=== PATIENT | male | born 1945 | race Caucasian/White ===

== ENCOUNTER 2017-01-01 12:11 | Emergency (ER) | payer MEDICARE, BC ==
[~2017-01-01 12:11] MED LIST: ECOTRIN81 MG PO; ELIQUIS5 MG PO; LASIX DPS40 MG PO; METOPROLOL TART25 MG PO; NYSTATIN1 EAC1 TP; POTASSIUM CHLO20 ME2 PO; ZESTRIL DPS2.5 MG PO
[2017-07-11] MEDS ORDERED: ELIQUIS5 MG PO (11:20)
[2017-07-11] MEDS ORDERED: ASPIR-LOW81 MG PO (11:20)
[2017-07-11] MEDS ORDERED: CARVEDILOL3.125 MG PO (11:20)
[2017-07-11] MEDS ORDERED: MYCOSTATIN PWD15 GM TP (11:21)
[2017-07-11] MEDS ORDERED: KLOR-CON M2020 ME1 PO (11:21)
[2017-07-11] MEDS ORDERED: LASIX DPS80 MG PO (11:21)
[2017-07-11] MEDS ORDERED: ZESTRIL DPS20 MG PO (11:21)
[2017-07-11] MEDS ORDERED: LIPITOR40 MG PO (11:21)
== END 2017-01-01 13:29 | disposition left against medical advice (07) ==
LOC: ER 12:11
DX: Z53.21 Procedure and treatment not carried out due to patient leaving prior to being seen by health care provider (principal)

== ENCOUNTER 2017-07-07 13:10 | Inpatient (IN) | payer MEDICARE, BC ==
[~2017-07-07] VITALS: Ht 180.3 cm; Wt 149.2 kg
--- NOTE | ~2017-07-07 | ECH ---
Transthoracic Echocardiography Report (TTE) Demographics Patient Name PEDRO MARTÍNEZ Date of Study 07/09/2017 Patient Number [id number] Visit Number [id number] Date of 1945 Room Number 413 Accession Number [id number] Gender Male Age 71 year(s) Referring Hermelinda Eason Urology Physician Assistant Christine Gilbert [facility] Physician Physician Interpreting Velma [employer] Team Lead Physician MD Supervising Ordering Physician Hermelinda Eason MD, MD/P Nurse Stress Heel Cover Splitter Conclusions Summary Limited exam for ejection fraction. The estimated left ventricular ejection fraction is 25-30% in underlying atrial fibrillation. Segmental wall motion abnormalities noted. The left ventricle is moderately dilated . Mild concentric left ventricular hypertrophy. Mildly dilated right ventricle with normal systolic function. The left atrium is mildly dilated by LA volume index measurement. The right atrium is severely dilated. The ascending aorta appears moderately dilated. The maximum diameter measures 4.5 cm. Procedure Type of Study TTE procedure:Echo Limited SF. Procedure Date Date: 07/09/2017 Start: 11:26 AM Technical Quality: Fair due to body habitus. Indications:Shortness of breath, Abnormal troponin and non-ischemic cardiomyopathy. Additional Indications:limited for EF Appropriate Use Criteria: 9 Height: 71 inches Weight: 337 pounds BSA: 2.63 m Rhythm: Irregular HR: 81 bpm BP: 145/90 mmHg Allergies - No known allergies. M-Mode/2D Measurements LV Diastolic Dimension: 6.85 cm LV Systolic Dimension: 6.64 cm LV Septum Diastolic: 1.02 cm LV PW Diastolic: 1.06 cm AO Root Dimension: 3.41 cm LA Dimension: 5.72 cm RV Diastolic Dimension: 4.68 cm LA volume: 94.32 ml LA volume index: 36 ml/m LVOT: 2.77 cm RV Base: 4.9 cm RV Mid: 4.4 cm RV Length: 8.8 cm TAPSE: 2.5 cm Doppler Measurements RA Area: 35.64 cm Findings Left Ventricle The left ventricle is moderately dilated . Mild concentric left ventricular hypertrophy. Right Ventricle Mildly dilated right ventricle with normal systolic function. Left Atrium The left atrium is mildly dilated by LA volume index measurement. Right Atrium The right atrium is severely dilated. Pericardial Effusion No evidence of pericardial effusion. Miscellaneous The ascending aorta appears moderately dilated. The maximum diameter measures 4.5 cm. Pleural Effusion No evidence of pleural effusion. Contractility Score LV regional wall motion:(0-Non visualized 1-Normal 2-Hypokinesis 3-Akinesis 4-Dyskinesis 5-Aneurysm) Signature
--- NOTE | 2017-07-08 07:15 | ER ---
ADMIT: 07/07/2017 RM/LOC: 413 [facility] MR#: [id number] [address] [address] PEDRO MARTÍNEZ [address] [place] [address] Emergency Room Report SEX: M AGE: 71 : 1945 DATE: 07/07/2017 SUBJECTIVE: The patient is a 71-year-old male with a past medical history of CHF, atrial fibrillation, and aortic aneurysm, who came to the ER with chief complaint of shortness of breath for the last 2 to 3 days. Allegedly, the patient has exertional shortness of breath even after walking short distance. The patient states for months, he is not taking any of his medications for atrial fibrillation or CHF. The patient denies any chest pain. The patient denies any fever or colorful sputum. The patient denies any orthopnea. PHYSICAL EXAMINATION: GENERAL: The patient was afebrile, was tachypneic with a respiratory rate of 28, and O2 saturation was 95% on room air, and blood pressure was 140s over 100. GENERAL: The patient was in moderate respiratory distress and was anxious. The patient was using accessory muscles too. HEAD AND NECK: There is no cyanosis. Trachea is midline. There is no bruit on the neck. CHEST: Decreased breath sound bilaterally and prolonged expiration. Decreased air movement bilaterally too. I did not hear any wheezing or crackles. HEART: Normal S1, S2 without any murmurs or gallops. ABDOMEN: Distended but nontender. EXTREMITIES: There is no tenderness. There is chronic edema which is nonpitting on lower extremities. Rest of physical exam is noncontributory and negative. Considering the patient's respiratory distress and work of breathing, the patient was put on BiPAP. EKG showed atrial fibrillation with left bundle- branch block, and the patient received aspirin p.o. in the ER too. Troponin was mildly elevated at 0.07. D-dimer was also elevated to 1.22, which a followup CT was negative for PE. Chest x-ray showed cardiomegaly with interstitial mild edema bilaterally. BNP was elevated to 14,000. The patient received a dose of Lasix 40 mg IV and was reassessed. After BiPAP and Lasix, the patient states his respiratory distress resolved significantly. The patient was off BiPAP and respiratory rate was in high teens. Medicine was consulted. The patient was admitted for CHF exacerbation, medication noncompliance, and elevated troponin for further followups and treatments. Chano Ortega MD/ juan alberto JOB #: [id number] CC: Nasima Berrios MD, Attending Physician Nasima Berrios MD, Family Physician
--- NOTE | 2017-07-08 16:55 | HP ---
ADMIT: 07/07/2017 RM/LOC: 413 [facility] MR#: [id number] [address] PEDRO MARTÍNEZ [address] [place] [address] History and Physical SEX: M AGE: 71 : 1945 DATE OF SERVICE: CHIEF COMPLAINT: Shortness of breath. HISTORY OF PRESENT ILLNESS: This is a 71-year-old white gentleman, past history of heart failure, sleep apnea. He presented with shortness of breath. He was found to be hypoxic. He says he has not been taking his meds for about a month because of a "disagreement with pharmacist." This last , he was starting to get a little more short of breath according to his son. He tells me, it was just yesterday. Today, he walked across the room to wind the grandfather clock and was so short of breath, he became dizzy. He then decided to come into emergency room. There, he was found to be hypoxic. He was given some IV Lasix, found to have an elevated blood pressure as well. Needed 4 L of oxygen to keep his oxygen saturations above 90%. PAST HISTORY: Includes obstructive sleep apnea, hypertension. He has had multiple abdominal surgeries for abdominal hernias. He has atrial fibrillation, chronic kidney disease, left bundle-branch block, history of thoracic aortic aneurysm, coronary artery disease, history of depression, diverticulosis, history of hyperglycemia, hypertension, history of a primary cardiomyopathy. Surgeries include status post colon resection, cholecystectomy. SOCIAL HISTORY: He is a former smoker. He is . PHYSICAL EXAMINATION: VITAL SIGNS: Temperature 97.5, pulse 101, respirations 22, blood pressure 132/101, oxygen saturation 97% on 4 L of oxygen by nasal cannula. GENERAL: This is a morbidly obese 71-year-old, in no apparent distress. HEENT: Pupils are equal, round, and reactive to light and accommodation. His extraocular muscles are intact. His throat is clear. NECK: Supple. Trachea is midline. Thyroid not palpable. He has some teeth missing. HEART: Irregularly irregular and distant. LUNGS: Clear to auscultation bilaterally but decreased breath sounds in lower lobes bilaterally. ABDOMEN: Protuberant and obese. He has a large right-sided abdominal hernia. SKIN: He has a stage II below the umbilicus. He has the smell of yeast and some redness under his pannus and his groin. MUSCULOSKELETAL: He has some diffuse weakness, but range of motion is okay in upper and lower extremities, 2 to 3+ pitting edema. NEUROLOGIC: Cranial nerves are intact. LABORATORY AND X-RAY DATA: Troponin was mildly elevated at 0.076. NT-proBNP was 14,000. CK was 130, bilirubin was 1.6, AST 52, creatinine 1.4, BUN 30, sodium 140, potassium 4.7. CT scan of his chest showed interstitial edema with bilateral pleural effusions. He has mediastinal adenopathy. ASSESSMENT: ADMIT: 07/07/2017 RM/LOC: 413 [facility] MR#: [id number] [id number] [address] PEDRO MARTÍNEZ [facility] [place] [address] History and Physical SEX: M AGE: 71 : 1945 1. Shortness of breath. 2. Acute hypoxic respiratory failure. 3. Chronic diastolic congestive heart failure. 4. Atrial fibrillation. 5. Chronic kidney disease stage III. 6. Elevated liver tests. 7. Elevated troponin. 8. History of left bundle-branch block. 9. Medication noncompliance. 10.Mediastinal adenopathy. PLAN: The patient admitted to hospital. He is already given some Lasix for this evening. We will give Lasix first thing in the morning as well. I will treat his yeast in the creases of skin with some nystatin. Check an echo for an EF only on Sunday. Have PT and OT to get up, move around with daily standing weights. I will need to add an SEAN inhibitor soon. In the past, he had taken lisinopril 20 mg, so we will add this. Ziyad Shen MD/ juan alberto JOB #: [id number] CC: Nasima Berrios, Attending Physician Nasima Berrios, Family Physician
[2017-07-11] MEDS ORDERED: CARVEDILOL3.125 MG PO (11:20)
[2017-07-11] MEDS ORDERED: ASPIR-LOW81 MG PO (11:20)
[2017-07-11] MEDS ORDERED: ELIQUIS5 MG PO (11:20)
[2017-07-11] MEDS ORDERED: LIPITOR40 MG PO (11:21)
[2017-07-11] MEDS ORDERED: KLOR-CON M2020 ME1 PO (11:21)
[2017-07-11] MEDS ORDERED: ZESTRIL DPS20 MG PO (11:21)
[2017-07-11] MEDS ORDERED: MYCOSTATIN PWD15 GM TP (11:21)
[2017-07-11] MEDS ORDERED: LASIX DPS80 MG PO (11:21)
--- NOTE | 2017-07-15 10:01 | DS ---
ADMIT: 07/07/2017 RM/LOC: 413 [facility] MR#: [id number] [address] PEDRO [place] [address] Discharge Summary SEX: M AGE: 71 : 1945 ADMISSION DATE: 07/07/2017 DISCHARGE DATE: 07/10/2017 DISCHARGE DIAGNOSES: 1. Shortness of breath. 2. Acute systolic CHF (congestive heart failure). 3. Fluid overload. 4. Chest lymphadenopathy. 5. Atrial fibrillation. 6. Obstructive sleep apnea. 7. History of multiple abdominal hernias. 8. Chronic kidney disease. 9. History of left bundle branch block. 10.History of thoracic aortic aneurysm. 11.Coronary artery disease. 12.Depression. 13.Diverticulosis. 14.Hyperglycemia. 15.Primary cardiomyopathy. 16.Status post cholecystectomy. 17.Groin intertrigo. HOSPITAL COURSE: The patient was admitted. He had serial cardiac enzymes, which were very low and suspected secondary to his strain from his CHF. He was given IV Lasix. He diuresed nicely. He initially required some oxygen but then this was tapered off. Overall, patient was doing much better. He was up ambulating with PT and was off oxygen for 24 hours prior to discharge. Overall, the patient was felt stable to be discharged home. MEDICATIONS: 1. Aspirin 81 mg p.o. daily. 2. Coreg 3.125 p.o. b.i.d. 3. Eliquis 5 mg p.o. b.i.d. 4. Lipitor 40 mg p.o. at bedtime. 5. Zestril 20 mg p.o. daily. 6. Mycostatin powder b.i.d. to the groin. ADMIT: 07/07/2017 RM/LOC: 413 [facility] MR#: [id number] [address] PEDRO MARTÍNEZ [address] [place] [address] Discharge Summary SEX: M AGE: 71 : 1945 7. Lasix 80 mg p.o. daily. 8. KCl 20 mEq p.o. daily. DISCHARGE INSTRUCTIONS: He is to do daily weights at home. He is to follow up with Dr. Nasima Berrios on 07/13/2017, at 1:20. He is to get a BMP at [facility] on Sunday. He is also to get a CT of his chest in 3 months to follow up this chest lymphadenopathy. He is also to continue with his CPAP at night. Otherwise, I spent 35 minutes in discharge planning, coordination, and care for this patient. Nasima Berrios MD/ leena JOB #: [id number] CC: Nasima Berrios MD, Attending Physician Nasima Berrios MD, Family Physician
== END 2017-07-10 12:40 | disposition home or self-care (01) | DRG 291 ==
LOC: ER 13:10 → 4PCU 17:45
PROVIDERS: ADMIT Internal Medicine
PROC: 3E0234Z Introduction of Serum, Toxoid and Vaccine into Muscle, Percutaneous Approach (ICD-10-PCS; principal; 2017-07-10)
DX: I13.0 Hypertensive heart and chronic kidney disease with heart failure and stage 1 through stage 4 chronic kidney disease, or unspecified chronic kidney disease (principal); I50.21 Acute systolic (congestive) heart failure; J96.01 Acute respiratory failure with hypoxia; I71.2 Thoracic aortic aneurysm, without rupture; Z68.42 Body mass index [BMI] 45.0-49.9, adult; B37.2 Candidiasis of skin and nail; I48.91 Unspecified atrial fibrillation; I42.9 Cardiomyopathy, unspecified; E66.01 Morbid (severe) obesity due to excess calories; Z23 Encounter for immunization; I44.7 Left bundle-branch block, unspecified; R59.1 Generalized enlarged lymph nodes; R73.9 Hyperglycemia, unspecified; L30.4 Erythema intertrigo; N18.3 Chronic kidney disease, stage 3 (moderate); G47.33 Obstructive sleep apnea (adult) (pediatric); K42.9 Umbilical hernia without obstruction or gangrene; R59.0 Localized enlarged lymph nodes; I25.10 Atherosclerotic heart disease of native coronary artery without angina pectoris; F32.9 Major depressive disorder, single episode, unspecified; K57.90 Diverticulosis of intestine, part unspecified, without perforation or abscess without bleeding; Z87.891 Personal history of nicotine dependence; Z91.14 Patient's other noncompliance with medication regimen